=== PATIENT | male | born 1945 | race Caucasian/White ===

== ENCOUNTER → 2020-11-07 09:00 | Outpatient (CLI) | payer MEDICARE, SELFPAY ==
[2020-11-07 10:50] LABS: COVID19 -Nasal RAPID Negative (Negative)
== END ==
PROVIDERS: PCP Student in an Organized Health Care Education/Training Program; Referring Provider Internal Medicine; Visit Provider Internal Medicine
DX: Z20.822 Contact with and (suspected) exposure to COVID-19 (principal)
CPT/HCPCS: 87635; C9803

== ENCOUNTER → 2020-11-07 09:05 | Outpatient (CLI) | payer MEDICARE, SELFPAY ==
--- NOTE | 2020-11-09 09:21 | PM.PFT.1 ---
Pulmonary Function Test Referral & Results Date Patient Seen: 11/07/20 Requesting provider: Gage Rudolph Results: The spirometry demonstrates an FVC of 3.53 L which is 83% of predicted. The FEV1 was measured at 2.54 L which is 82% of predicted. The FEV1/FVC ratio was 72 which is 98% of predicted. Following the administration of bronchodilator there was a 27% improvement in FEF 25-75%. Lung volumes show an SVC of 3.20 L which is 71% of predicted. The diffusing capacity was measured at 22.20 which is 68% of predicted. No hemoglobin value was provided, so no correction for potential anemia could be made, if appropriate. The maximum voluntary ventilation was normal Interpretation: This study demonstrates perhaps mild obstructive lung disease based on reduction FEV1 although FEV1/FVC ratio is preserved. There is also minimal evidence of benefit following bronchodilator particularly small airway flow based on improvement in FEF 25-75% as above. There is a mild reduction in SVC suggesting minimal restrictive lung disease which may well explain the abnormality in FEV1 abovee decrease in diffusing capacity suggesting more significant disease at the capillary alveolar level, unless patient is anemic Compared to PFTs performed in June 2017, current study shows notable decline in diffusing capacity. Previous spirometry was essentially same as current spirometry without significant change
== END ==
PROVIDERS: PCP Student in an Organized Health Care Education/Training Program; Referring Provider Student in an Organized Health Care Education/Training Program; Visit Provider Student in an Organized Health Care Education/Training Program
DX: R05 Cough (principal); J98.8 Other specified respiratory disorders; Z20.822 Contact with and (suspected) exposure to COVID-19
CPT/HCPCS: 87635; 94060; 94726; 94729; C9803